=== PATIENT | male | born 1990 | race African-American/Black ===

== ENCOUNTER 2023-02-03 14:08 | Inpatient (IN) | payer OTHER ==
[2023-02-03 15:10] VITALS: BMI 23.0
[2023-02-03] MEDS ORDERED: NALOXONE HCL (KLOXXADO) 8 MG SPRAY NS PRN (18:42)
[2023-02-03] MEDS ORDERED: NICOTINE 10 MG CARTRIDGE (INHALER) IH PRN (18:42)
[2023-02-03] MEDS ORDERED: chlordiazePOXIDE HCL 25 MG CAPSULE PO PRN (18:42)
[2023-02-03] MEDS ORDERED: MAG HYDROX/AL HYDROX/SIMETH 30 ML UNIT-DOSE CUP PO PRN (18:42)
[2023-02-03] MEDS ORDERED: BENZONATATE 200 MG CAPSULE PO PRN (18:42)
[2023-02-03] MEDS ORDERED: ACETAMINOPHEN 325 MG TABLET (FP) PO PRN (18:42)
[2023-02-03] MEDS ORDERED: guaiFENesin 600 MG TABLET.ER (FP) PO PRN (18:42)
[2023-02-03] MEDS ORDERED: POLYETHYLENE GLYCOL (HEALTHYLAX) 3350 17 GM PACKET PO PRN (18:42)
[2023-02-03] MEDS ORDERED: NALOXONE HCL 0.4 MG/ML VIAL IM PRN (18:42)
[2023-02-03] MEDS ORDERED: DICYCLOMINE HCL 10 MG CAPSULE PO PRN (18:42)
[2023-02-03] MEDS ORDERED: MAGNESIUM HYDROX 2400MG/30ML ORAL SUSPENSION 30 ML CUP PO PRN (18:42)
[2023-02-03] MEDS ORDERED: IBUPROFEN 400 MG TABLET (FP) PO PRN (18:42)
[2023-02-03] MEDS ORDERED: BENZOCAINE/MENTHOL (CHLORASEPTIC ) LOZENGE MM PRN (18:42)
[2023-02-03] MEDS ORDERED: BISMUTH SUBSALICYLATE 524 MG/30 ML PO PRN (18:42)
[2023-02-03] MEDS ORDERED: ONDANSETRON *ODT* 4 MG TABLET SL PRN (18:42)
[2023-02-03] MEDS ORDERED: LOPERAMIDE HCL 2 MG CAPSULE PO PRN (18:42)
[2023-02-03] MEDS ORDERED: chlordiazePOXIDE HCL 25 MG CAPSULE ONE (19:33)
[2023-02-03] MEDS: MELATONIN 5 MG TABLETS PO SCH (22:07)
[2023-02-03] MEDS: THIAMINE HCL 100 MG TABLET (FP) PO SCH (22:07)
[2023-02-03] MEDS: chlordiazePOXIDE HCL 25 MG CAPSULE PO SCH (22:08)
[2023-02-04] MEDS: chlordiazePOXIDE HCL 25 MG CAPSULE PO SCH ×4 (05:14→22:14)
[2023-02-04] MEDS: PRENATAL VITAMINS W/ FOLIC ACID TABLET (FP) PO SCH (10:28)
[2023-02-04 10:54] LABS: HEMATOCRIT 38.3 % (35.4-49); HEMOGLOBIN 12.9 GM/dL (11.7-16.9); MCH 31.4 pg (25.7-33.7); MCHC 33.6 g/dl (32.0-35.9); MEAN CELL VOLUME 93.4 fl (80-96); MEAN PLT VOLUME 8.9 fl (7.5-11.1); PLATELET COUNT 279 10^3/uL (134-434); RDW 12.9 % (11.9-15.9); WHITE BLOOD COUNT 7.1 K/mm3 (4.0-10.0)
[2023-02-04 11:40] LABS: BLOOD UREA NITROGEN 9.4 mg/dL (7-18); CALCIUM 8.8 mg/dL (8.5-10.1)
[2023-02-04 11:41] LABS: ALBUMIN 3.3 g/dl (3.4-5.0)
[2023-02-04 11:44] LABS: CREATININE 0.7 mg/dL (0.55-1.3)
[2023-02-04 11:45] LABS: BILIRUBIN,TOTAL 0.6 mg/dL (0.2-1); TOT PROT 6.4 g/dl (6.4-8.2)
[2023-02-04 12:24] LABS: HIV INTERPRETATION NEGATIVE (NEGATIVE)
[2023-02-04] MEDS: METHOCARBAMOL 500 MG TABLET PO PRN (17:28)
[2023-02-04] MEDS: hydrOXYzine PAMOATE 25 MG CAPSULE (FP) PO PRN (17:28)
[2023-02-04] MEDS: THIAMINE HCL 100 MG TABLET (FP) PO SCH (22:14)
[2023-02-04] MEDS: MELATONIN 5 MG TABLETS PO SCH (22:14)
[2023-02-05] MEDS: chlordiazePOXIDE HCL 25 MG CAPSULE PO SCH ×2 (05:23→11:48)
[2023-02-05] MEDS: METHOCARBAMOL 500 MG TABLET PO PRN ×2 (05:25→22:08)
[2023-02-05] MEDS: PRENATAL VITAMINS W/ FOLIC ACID TABLET (FP) PO SCH (12:46)
[2023-02-05] MEDS ORDERED: LORazepam 1 MG TABLET PO PRN (15:03)
[2023-02-05] MEDS: LORazepam 1 MG TABLET PO SCH ×2 (17:53→22:07)
[2023-02-05] MEDS: MELATONIN 5 MG TABLETS PO SCH (22:06)
[2023-02-05] MEDS: THIAMINE HCL 100 MG TABLET (FP) PO SCH (22:06)
[2023-02-05] MEDS: hydrOXYzine PAMOATE 25 MG CAPSULE (FP) PO PRN (22:08)
[2023-02-06] MEDS ORDERED: chlordiazePOXIDE HCL 10 MG CAPSULE PO PRN
[2023-02-06] MEDS ORDERED: chlordiazePOXIDE HCL 10 MG CAPSULE PO SCH (05:00)
[2023-02-06] MEDS: LORazepam 1 MG TABLET PO SCH ×4 (05:32→22:42)
[2023-02-06] MEDS: METHOCARBAMOL 500 MG TABLET PO PRN ×2 (06:12→22:42)
[2023-02-06] MEDS: IBUPROFEN 600 MG TABLET (FP) PO PRN ×2 (06:12→22:43)
[2023-02-06] MEDS: PRENATAL VITAMINS W/ FOLIC ACID TABLET (FP) PO SCH (10:37)
[2023-02-06] MEDS: THIAMINE HCL 100 MG TABLET (FP) PO SCH (22:42)
[2023-02-06] MEDS: MELATONIN 5 MG TABLETS PO SCH (22:42)
[2023-02-06] MEDS: hydrOXYzine PAMOATE 25 MG CAPSULE (FP) PO PRN (22:42)
[2023-02-07] MEDS ORDERED: LORazepam 0.5 MG TABLET PO PRN
[2023-02-07] MEDS ORDERED: chlordiazePOXIDE HCL 10 MG CAPSULE PO SCH (05:00)
[2023-02-07] MEDS: LORazepam 0.5 MG TABLET PO SCH ×4 (05:26→22:10)
[2023-02-07] MEDS: PRENATAL VITAMINS W/ FOLIC ACID TABLET (FP) PO SCH (10:39)
[2023-02-07] MEDS: METHOCARBAMOL 500 MG TABLET PO PRN ×2 (10:41→22:12)
[2023-02-07] MEDS: MELATONIN 5 MG TABLETS PO SCH (22:10)
[2023-02-07] MEDS: THIAMINE HCL 100 MG TABLET (FP) PO SCH (22:10)
[2023-02-08] MEDS ORDERED: chlordiazePOXIDE HCL 10 MG CAPSULE PO ONE (05:00)
[2023-02-08] MEDS: LORazepam 0.5 MG TABLET PO SCH (05:12)
[2023-02-08] MEDS: METHOCARBAMOL 500 MG TABLET PO PRN (10:36)
[2023-02-08] MEDS: PRENATAL VITAMINS W/ FOLIC ACID TABLET (FP) PO SCH (10:36)
[2023-02-08] MEDS: hydrOXYzine PAMOATE 25 MG CAPSULE (FP) PO PRN (10:36)
[2023-02-08 13:42] VITALS: BP 135/78; PULSE 70; RESP 17; TEMP 98
== END 2023-02-08 03:09 | disposition other institution (70) | DRG 775 ==
LOC: YASAS 14:08 → Y3N 19:27
PROVIDERS: ADMIT Allergy & Immunology; ATTEND Surgery
PROC: HZ2ZZZZ Detoxification Services for Substance Abuse Treatment (ICD-10-PCS; principal; 2023-02-03)
DX: F10.230 Alcohol dependence with withdrawal, uncomplicated (principal); F17.210 Nicotine dependence, cigarettes, uncomplicated; Z28.310 Unvaccinated for COVID-19; Z28.9 Immunization not carried out for unspecified reason; Z59.01 Sheltered homelessness
CPT/HCPCS: 36415; 80053; 83036; 85027; 86780; 87389; C9803-CS; Q0162; U0003; U0005

== ENCOUNTER 2023-02-08 15:26 | Inpatient (IN) | payer OTHER ==
[2023-02-08] MEDS ORDERED: COLLOIDAL OATMEAL 1 BAR EACH TP PRN (17:09)
[2023-02-08] MEDS ORDERED: NICOTINE 10 MG CARTRIDGE (INHALER) IH PRN (17:09)
[2023-02-08] MEDS ORDERED: MAG HYDROX/AL HYDROX/SIMETH 30 ML UNIT-DOSE CUP PO PRN (17:09)
[2023-02-08] MEDS ORDERED: POLYETHYLENE GLYCOL (HEALTHYLAX) 3350 17 GM PACKET PO PRN (17:09)
[2023-02-08] MEDS ORDERED: ACETAMINOPHEN 325 MG TABLET (FP) PO PRN (17:09)
[2023-02-08] MEDS ORDERED: guaiFENesin 600 MG TABLET.ER (FP) PO PRN (17:09)
[2023-02-08] MEDS ORDERED: IBUPROFEN 400 MG TABLET (FP) PO PRN (17:09)
[2023-02-08] MEDS ORDERED: NALOXONE HCL (KLOXXADO) 8 MG SPRAY NS PRN (17:09)
[2023-02-08] MEDS ORDERED: BENZOCAINE/MENTHOL (CHLORASEPTIC ) LOZENGE MM PRN (17:09)
[2023-02-08] MEDS ORDERED: BENZONATATE 200 MG CAPSULE PO PRN (17:09)
[2023-02-08] MEDS ORDERED: NALOXONE HCL 0.4 MG/ML VIAL IVPUSH PRN (17:09)
[2023-02-08] MEDS ORDERED: MAGNESIUM HYDROX 2400MG/30ML ORAL SUSPENSION 30 ML CUP PO PRN (17:09)
[2023-02-08] MEDS ORDERED: LOPERAMIDE HCL 2 MG CAPSULE PO PRN (17:09)
[2023-02-08] MEDS ORDERED: AMMONIUM LACTATE 12% LOTION 225 GM BOTTLE TP PRN (17:09)
[2023-02-08] MEDS ORDERED: NICOTINE POLACRILEX 2 MG GUM BUC PRN (17:10)
[2023-02-08] MEDS: THIAMINE HCL 100 MG TABLET (FP) PO SCH (21:35)
[2023-02-08] MEDS: MELATONIN 5 MG TABLETS PO SCH (21:35)
[2023-02-08] MEDS: hydrOXYzine PAMOATE 25 MG CAPSULE (FP) PO PRN (21:36)
[2023-02-08] MEDS: METHOCARBAMOL 500 MG TABLET PO PRN (21:37)
[2023-02-09] MEDS: METHOCARBAMOL 500 MG TABLET PO PRN ×2 (10:11→21:06)
[2023-02-09] MEDS: hydrOXYzine PAMOATE 25 MG CAPSULE (FP) PO PRN ×2 (10:12→21:05)
[2023-02-09] MEDS: IBUPROFEN 600 MG TABLET (FP) PO PRN (10:12)
[2023-02-09] MEDS: PRENATAL VITAMINS W/ FOLIC ACID TABLET (FP) PO SCH (10:13)
[2023-02-09] MEDS: MELATONIN 5 MG TABLETS PO SCH (21:05)
[2023-02-09] MEDS: THIAMINE HCL 100 MG TABLET (FP) PO SCH (21:05)
[2023-02-10] MEDS: PRENATAL VITAMINS W/ FOLIC ACID TABLET (FP) PO SCH (09:45)
[2023-02-10] MEDS: hydrOXYzine PAMOATE 25 MG CAPSULE (FP) PO PRN ×2 (09:47→21:11)
[2023-02-10] MEDS: METHOCARBAMOL 500 MG TABLET PO PRN ×2 (09:47→21:11)
[2023-02-10] MEDS: IBUPROFEN 600 MG TABLET (FP) PO PRN ×2 (09:47→22:13)
[2023-02-10 12:12] LABS: HIV INTERPRETATION NEGATIVE (NEGATIVE)
[2023-02-10] MEDS: THIAMINE HCL 100 MG TABLET (FP) PO SCH (21:10)
[2023-02-10] MEDS: MELATONIN 5 MG TABLETS PO SCH (21:10)
[2023-02-11] MEDS: hydrOXYzine PAMOATE 25 MG CAPSULE (FP) PO PRN ×2 (08:55→21:09)
[2023-02-11] MEDS: IBUPROFEN 600 MG TABLET (FP) PO PRN (08:55)
[2023-02-11] MEDS: PRENATAL VITAMINS W/ FOLIC ACID TABLET (FP) PO SCH ×2 (08:57→10:07)
[2023-02-11] MEDS: MELATONIN 5 MG TABLETS PO SCH (21:09)
[2023-02-11] MEDS: THIAMINE HCL 100 MG TABLET (FP) PO SCH (21:10)
[2023-02-12] MEDS: PRENATAL VITAMINS W/ FOLIC ACID TABLET (FP) PO SCH (09:21)
[2023-02-12] MEDS: MELATONIN 5 MG TABLETS PO SCH (21:25)
[2023-02-12] MEDS: THIAMINE HCL 100 MG TABLET (FP) PO SCH (21:25)
[2023-02-13] MEDS: PRENATAL VITAMINS W/ FOLIC ACID TABLET (FP) PO SCH (09:54)
[2023-02-13] MEDS: hydrOXYzine PAMOATE 25 MG CAPSULE (FP) PO PRN ×2 (09:55→21:17)
[2023-02-13] MEDS: MELATONIN 5 MG TABLETS PO SCH (21:17)
[2023-02-13] MEDS: THIAMINE HCL 100 MG TABLET (FP) PO SCH (21:17)
[2023-02-14] MEDS: PRENATAL VITAMINS W/ FOLIC ACID TABLET (FP) PO SCH (10:03)
[2023-02-14] MEDS: hydrOXYzine PAMOATE 25 MG CAPSULE (FP) PO PRN (10:04)
[2023-02-14] MEDS: THIAMINE HCL 100 MG TABLET (FP) PO SCH (21:16)
[2023-02-14] MEDS: MELATONIN 5 MG TABLETS PO SCH (21:16)
[2023-02-15] MEDS: PRENATAL VITAMINS W/ FOLIC ACID TABLET (FP) PO SCH (09:51)
[2023-02-15] MEDS: hydrOXYzine PAMOATE 25 MG CAPSULE (FP) PO PRN ×2 (09:53→21:16)
[2023-02-15] MEDS: MELATONIN 5 MG TABLETS PO SCH (21:15)
[2023-02-15] MEDS: THIAMINE HCL 100 MG TABLET (FP) PO SCH (21:16)
[2023-02-16] MEDS: PRENATAL VITAMINS W/ FOLIC ACID TABLET (FP) PO SCH (09:50)
[2023-02-16] MEDS: hydrOXYzine PAMOATE 25 MG CAPSULE (FP) PO PRN ×2 (09:50→21:30)
[2023-02-16] MEDS: THIAMINE HCL 100 MG TABLET (FP) PO SCH (21:30)
[2023-02-16] MEDS: METHOCARBAMOL 500 MG TABLET PO PRN (21:30)
[2023-02-16] MEDS: MELATONIN 5 MG TABLETS PO SCH (21:30)
[2023-02-17] MEDS: PRENATAL VITAMINS W/ FOLIC ACID TABLET (FP) PO SCH (10:01)
[2023-02-17] MEDS: METHOCARBAMOL 500 MG TABLET PO PRN (10:01)
[2023-02-17] MEDS: hydrOXYzine PAMOATE 25 MG CAPSULE (FP) PO PRN (10:02)
[2023-02-17] MEDS: THIAMINE HCL 100 MG TABLET (FP) PO SCH (21:15)
[2023-02-17] MEDS: SUVOREXANT 5 MG TABLET PO PRN (21:15)
[2023-02-18] MEDS: PRENATAL VITAMINS W/ FOLIC ACID TABLET (FP) PO SCH (10:08)
[2023-02-18] MEDS: METHOCARBAMOL 500 MG TABLET PO PRN ×2 (10:10→21:31)
[2023-02-18] MEDS: hydrOXYzine PAMOATE 25 MG CAPSULE (FP) PO PRN (10:10)
[2023-02-18] MEDS: THIAMINE HCL 100 MG TABLET (FP) PO SCH (21:31)
[2023-02-18] MEDS: SUVOREXANT 5 MG TABLET PO PRN (21:31)
[2023-02-19] MEDS: METHOCARBAMOL 500 MG TABLET PO PRN ×2 (10:05→21:25)
[2023-02-19] MEDS: PRENATAL VITAMINS W/ FOLIC ACID TABLET (FP) PO SCH (10:05)
[2023-02-19] MEDS: hydrOXYzine PAMOATE 25 MG CAPSULE (FP) PO PRN ×2 (10:05→21:25)
[2023-02-19] MEDS: SUVOREXANT 5 MG TABLET PO PRN (21:24)
[2023-02-19] MEDS: THIAMINE HCL 100 MG TABLET (FP) PO SCH (21:25)
[2023-02-20] MEDS: METHOCARBAMOL 500 MG TABLET PO PRN ×2 (09:55→21:19)
[2023-02-20] MEDS: hydrOXYzine PAMOATE 25 MG CAPSULE (FP) PO PRN ×2 (09:55→21:19)
[2023-02-20] MEDS: PRENATAL VITAMINS W/ FOLIC ACID TABLET (FP) PO SCH (09:55)
[2023-02-20] MEDS: SUVOREXANT 5 MG TABLET PO PRN (21:19)
[2023-02-20] MEDS: THIAMINE HCL 100 MG TABLET (FP) PO SCH (21:19)
[2023-02-21] MEDS: PRENATAL VITAMINS W/ FOLIC ACID TABLET (FP) PO SCH (09:48)
[2023-02-21] MEDS: hydrOXYzine PAMOATE 25 MG CAPSULE (FP) PO PRN ×2 (09:50→21:23)
[2023-02-21] MEDS: METHOCARBAMOL 500 MG TABLET PO PRN ×2 (09:50→21:22)
[2023-02-21] MEDS: THIAMINE HCL 100 MG TABLET (FP) PO SCH (21:22)
[2023-02-21] MEDS: SUVOREXANT 5 MG TABLET PO PRN (21:25)
[2023-02-22] MEDS: hydrOXYzine PAMOATE 25 MG CAPSULE (FP) PO PRN ×2 (09:54→21:14)
[2023-02-22] MEDS: PRENATAL VITAMINS W/ FOLIC ACID TABLET (FP) PO SCH (09:54)
[2023-02-22] MEDS: METHOCARBAMOL 500 MG TABLET PO PRN ×2 (09:54→21:14)
[2023-02-22] MEDS: SUVOREXANT 5 MG TABLET PO PRN (21:13)
[2023-02-22] MEDS: THIAMINE HCL 100 MG TABLET (FP) PO SCH (21:13)
[2023-02-23] MEDS: hydrOXYzine PAMOATE 25 MG CAPSULE (FP) PO PRN ×2 (09:45→21:13)
[2023-02-23] MEDS: PRENATAL VITAMINS W/ FOLIC ACID TABLET (FP) PO SCH (09:45)
[2023-02-23] MEDS: METHOCARBAMOL 500 MG TABLET PO PRN ×2 (09:45→21:13)
[2023-02-23] MEDS: THIAMINE HCL 100 MG TABLET (FP) PO SCH (21:13)
[2023-02-23] MEDS ORDERED: SUVOREXANT 5 MG TABLET PO PRN (22:00)
[2023-02-23] MEDS ORDERED: SUVOREXANT 10 MG TABLET PO PRN (22:00)
[2023-02-24] MEDS: PRENATAL VITAMINS W/ FOLIC ACID TABLET (FP) PO SCH (09:57)
[2023-02-24] MEDS: METHOCARBAMOL 500 MG TABLET PO PRN ×2 (09:58→21:25)
[2023-02-24] MEDS: hydrOXYzine PAMOATE 25 MG CAPSULE (FP) PO PRN ×2 (09:58→21:25)
[2023-02-24] MEDS: THIAMINE HCL 100 MG TABLET (FP) PO SCH (21:22)
[2023-02-24] MEDS ORDERED: traZODone HCL 50 MG TABLET (FP) PO PRN (22:00)
[2023-02-25] MEDS: PRENATAL VITAMINS W/ FOLIC ACID TABLET (FP) PO SCH (09:49)
[2023-02-25] MEDS: METHOCARBAMOL 500 MG TABLET PO PRN ×2 (09:50→21:16)
[2023-02-25] MEDS: hydrOXYzine PAMOATE 25 MG CAPSULE (FP) PO PRN ×2 (09:50→21:16)
[2023-02-25] MEDS: THIAMINE HCL 100 MG TABLET (FP) PO SCH (21:16)
[2023-02-25] MEDS: traZODone HCL 100 MG TABLET (FP) PO PRN (21:18)
[2023-02-26] MEDS: PRENATAL VITAMINS W/ FOLIC ACID TABLET (FP) PO SCH (10:17)
[2023-02-26] MEDS: hydrOXYzine PAMOATE 25 MG CAPSULE (FP) PO PRN ×2 (10:18→21:25)
[2023-02-26] MEDS: METHOCARBAMOL 500 MG TABLET PO PRN ×2 (10:18→21:25)
[2023-02-26] MEDS: THIAMINE HCL 100 MG TABLET (FP) PO SCH (21:25)
[2023-02-26] MEDS: traZODone HCL 100 MG TABLET (FP) PO PRN (21:25)
[2023-02-27 07:36] VITALS: RESP 18
[2023-02-27] MEDS: PRENATAL VITAMINS W/ FOLIC ACID TABLET (FP) PO SCH (10:04)
[2023-02-27] MEDS: hydrOXYzine PAMOATE 25 MG CAPSULE (FP) PO PRN ×2 (10:05→21:12)
[2023-02-27] MEDS: METHOCARBAMOL 500 MG TABLET PO PRN ×2 (10:05→21:11)
[2023-02-27] MEDS: traZODone HCL 100 MG TABLET (FP) PO PRN (21:11)
[2023-02-27] MEDS: THIAMINE HCL 100 MG TABLET (FP) PO SCH (21:11)
[2023-02-28] MEDS: PRENATAL VITAMINS W/ FOLIC ACID TABLET (FP) PO SCH (10:09)
[2023-02-28] MEDS: hydrOXYzine PAMOATE 25 MG CAPSULE (FP) PO PRN ×2 (10:10→21:10)
[2023-02-28] MEDS: METHOCARBAMOL 500 MG TABLET PO PRN ×2 (10:10→21:10)
[2023-02-28] MEDS: traZODone HCL 100 MG TABLET (FP) PO PRN (21:10)
[2023-02-28] MEDS: THIAMINE HCL 100 MG TABLET (FP) PO SCH (21:10)
[2023-03-01] MEDS: METHOCARBAMOL 500 MG TABLET PO PRN ×2 (10:13→21:23)
[2023-03-01] MEDS: hydrOXYzine PAMOATE 25 MG CAPSULE (FP) PO PRN ×2 (10:13→21:23)
[2023-03-01] MEDS: PRENATAL VITAMINS W/ FOLIC ACID TABLET (FP) PO SCH (10:14)
[2023-03-01] MEDS: THIAMINE HCL 100 MG TABLET (FP) PO SCH (21:23)
[2023-03-01] MEDS: traZODone HCL 100 MG TABLET (FP) PO PRN (21:23)
[2023-03-02] MEDS: hydrOXYzine PAMOATE 25 MG CAPSULE (FP) PO PRN ×2 (09:46→21:16)
[2023-03-02] MEDS: PRENATAL VITAMINS W/ FOLIC ACID TABLET (FP) PO SCH (09:46)
[2023-03-02] MEDS: METHOCARBAMOL 500 MG TABLET PO PRN ×2 (09:46→21:16)
[2023-03-02] MEDS: traZODone HCL 50 MG TABLET (FP) PO SCH (21:15)
[2023-03-02] MEDS: THIAMINE HCL 100 MG TABLET (FP) PO SCH (21:17)
[2023-03-03] MEDS: PRENATAL VITAMINS W/ FOLIC ACID TABLET (FP) PO SCH (10:26)
[2023-03-03] MEDS: hydrOXYzine PAMOATE 25 MG CAPSULE (FP) PO PRN ×2 (10:27→21:21)
[2023-03-03] MEDS: METHOCARBAMOL 500 MG TABLET PO PRN ×2 (10:27→21:21)
[2023-03-03] MEDS: traZODone HCL 50 MG TABLET (FP) PO SCH (21:20)
[2023-03-03] MEDS: THIAMINE HCL 100 MG TABLET (FP) PO SCH (21:21)
[2023-03-04 06:30] VITALS: PULSE 60
[2023-03-04] MEDS: PRENATAL VITAMINS W/ FOLIC ACID TABLET (FP) PO SCH (09:40)
[2023-03-04] MEDS: hydrOXYzine PAMOATE 25 MG CAPSULE (FP) PO PRN ×2 (09:40→21:21)
[2023-03-04] MEDS: METHOCARBAMOL 500 MG TABLET PO PRN ×2 (09:41→21:21)
[2023-03-04] MEDS: traZODone HCL 50 MG TABLET (FP) PO SCH (21:21)
[2023-03-04] MEDS: THIAMINE HCL 100 MG TABLET (FP) PO SCH (21:21)
[2023-03-05 07:11] VITALS: BP 131/79; TEMP 97.1
[2023-03-05] MEDS: hydrOXYzine PAMOATE 25 MG CAPSULE (FP) PO PRN (09:03)
[2023-03-05] MEDS: METHOCARBAMOL 500 MG TABLET PO PRN (09:03)
[2023-03-05] MEDS: PRENATAL VITAMINS W/ FOLIC ACID TABLET (FP) PO SCH (09:03)
== END 2023-03-05 10:05 | disposition home or self-care (01) | DRG 772 ==
LOC: YASAS 15:26 → Y5N 15:27
PROVIDERS: ADMIT Allergy & Immunology; ATTEND Psychiatry & Neurology Pain Medicine
PROC: HZ42ZZZ Group Counseling for Substance Abuse Treatment, Cognitive-Behavioral (ICD-10-PCS; principal; 2023-02-08)
DX: F10.20 Alcohol dependence, uncomplicated (principal); F17.210 Nicotine dependence, cigarettes, uncomplicated; G47.00 Insomnia, unspecified; R73.03 Prediabetes
CPT/HCPCS: 36415; 82962; 87389